=== PATIENT | male | born 1995 | race Two or more races ===

== ENCOUNTER 2018-09-24 19:32 | Emergency (ER) | payer OTHER ==
[~2018-09-24] VITALS: Ht 172.7 cm; Wt 84.4 kg
--- NOTE | 2018-09-24 19:42 | PHYS DOC ---
Past History Additional Past Medical Histor: Adjustment disorder Past Medical History Unable to obtained due to altered mental status Past Surgical History Unable to obtained due to altered mental status Social History Unable to obtained due to altered mental status Adult General Chief Complaint Chief Complaint: ALTERED MENTAL STATUS HPI HPI 23 y/o male presents via EMS from [facility] with reports of altered mental status with concern for possible seizure like activity. Patient apparently had "fallen" from standing down 2 stairs just prior to arrival. Patient subsequently had seizure like activity which was witnessed by inmates. Patient did also sustain a laceration to upper lip. Seen and evaluated by facility medical staff at which time Narcan intranasally was provided. Narcan without improvement of symptoms and therefore EMS was called. EMS reports concern for continued seizure activity and therefore gave 5mg of Versed IM in route. NO known history of seizures per facility paperwork. HPI limited due to patient's altered mental status. Review of Systems Review of Systems Integument: Upper lip laceration Neurologic: Seizure like activity, altered mental status ROS limited due to altered mental status Physical Exam Physical Exam Constitutional: Well developed, well nourished, no acute distress, minimally responsive HENT: Normocephalic, bilateral external canals and TMs clear, oropharynx moist, dried blood noted to nares bilaterally, midline upper lip laceration (1.5cm)) Eyes: PERRL, conjunctiva normal Neck: Supple. C-collar in place Cardiovascular: Heart rate regular rhythm, no murmur [] Lungs & Thorax: Bilateral breath sounds clear to auscultation [] Abdomen: Soft, no tenderness, pelvis stable and nontender Skin: Warm, dry, upper lip mucosal laceration as above Extremities: No tenderness, no deformity, no edema. [] Neurologic: GCS 9 (eye 2, verbal 2, motor 5), speech with incomprehensible sounds and grunts EKG EKG @1938 Sinus tachycardia at 119bpm, NO ST elevation, QRS 90, QT/QTc 306/437ms, PVC x 1 noted Radiology/Procedures Radiology/Procedures PROCEDURE: CT HEAD, CERVICAL SPINE, MAXILLOFACIAL WO CONTRAST CT brain without contrast, CT facial bones without contrast, CT cervical spine without contrast HISTORY: Head contusion, facial injury, altered mental status, seizure CT brain CT scan of brain was done without contrast. There is no skull fracture. There is no intracranial hemorrhage or subdural hematoma. An acute CVA is not identified. There is no mass or shift of the midline. Ventricles are normal in size. There is extracranial soft tissue swelling of the forehead. IMPRESSION: 1. No intracranial hemorrhage or acute finding noted. End impression CT cervical spine Axial CT images were obtained to the cervical spine. Sagittal and coronal reconstructed images were reviewed. Upper aspect of the lungs are clear. Thyroid is homogeneous. There are degenerative changes in the cervical spine. There is no acute C-spine fracture. There is prominent spurring at C3-4 more on the left. IMPRESSION: 1. Degenerative spondylosis at C3-4. 2. No acute C-spine fracture. CT FACIAL BONES: Axial CT images were obtained to the facial bones. Parotid and submandibular glands are unremarkable. Sinuses are clear throughout. Mandible is intact. A facial or orbital fracture is not identified. There is soft tissue swelling extracranially on the forehead. Nasal bone appears intact. IMPRESSION: 1. No facial fracture noted. PROCEDURE: PORTABLE CHEST 1V AP chest. HISTORY: Loss of consciousness, head contusion, altered mental status AP view was taken of the chest. Patient's taken a poor inspiration. The stomach is distended. Heart is within normal limits in size. There are no confluent infiltrates. There is no pneumothorax or pleural effusion. IMPRESSION: 1. Gastric distention. 2. Poor inspiration. 3. No acute infiltrates. Electronically signed by: Eric Duran MD (09/24/2018 9:00 PM) [facility] Course & Med Decision Making Course & Med Decision Making Pertinent Labs and Imaging studies reviewed. (See chart for details) Patient presents s/p seizure like activity which was seen at correctional facility. Midline upper lip laceration noted. GCS 9. Patient protecting own airway. CT head/cervical spine/maxillofacial obtained without acute process. Labs obtained and posted to chart. Lactic acid and CPK elevated likely due to true generalized seizure. Creat also slightly elevated. No prior labs for comparison. IVF boluses x 2 given. EKG stable. Patient with increased mentation during ED stay. Patient's confusion/altered mental status likely post -ictal in nature. Patient did reports history of prior seizures once he was more cognizant, however, denies ever being on medication. C-collar cleared. Upper lip laceration repaired. Keppra IV bolus provided. Patient stable for discharge back to correctional facility with outpatient follow-up with PCP/neurologist. Neurology referral provided. Rx for continued Keppra provided. Discussed findings and plan with patient and guards, who acknowledge understanding and agreement. Tory Disclaimer Tory Disclaimer This electronic medical record was generated, in whole or in part, using a voice recognition dictation system. Laceration/Wound Repair Laceration/Wound Repair : Wound Location: mouth (midline upper lip on mucosal surface) Wound Length (cm): 2 Wound Explored: contaminated (no foreign body) Irrigated w/ Saline (ccs): 50 Anesthesia: Lidocaine w/ Epi (2%) Volume Anesthetic (ccs): 1 Wound Debrided: minimal Wound Repaired With: sutures (Vicryl- simple buried interrupte) Suture Size/Type: 6:0 Number of Sutures: 2 Progress Time out performed. Tolerated procedure well and without difficulty. Departure Departure: Impression: Primary Impression: Seizure Additional Impression: Lip laceration Disposition: HOME, SELF-CARE (back to [facility]) Condition: STABLE Referrals: NEFTALY BELLA MD Patient Instructions: Mouth Laceration, [id number], Seizure, Adult, Easy-to- Read Additional Instructions: Please follow up with a neurologist prior to prescription medication running out. You will need to get your family physician and/or neurologist to continue this anti-seizure medication. Scripts Levetiracetam (KEPPRA) 500 Mg Tablet 1 TAB PO BID for seizure for 20 Days, #40 TAB 0 Refills Prov: JEISON ARECHIGA DO 09/24/18 Problem Qualifiers Additional Impression: Lip laceration Encounter type: initial encounter Qualified Codes: S01.511A - Laceration without foreign body of lip, initial encounter JEISON ARECHIGA DO Sep 24, 2018 19:42
[2018-09-24] MEDS ORDERED: IV NORMAL SALINE 1,000ML 1,000 ML IV ONE ×2 (19:45→20:30)
[2018-09-24 19:52] LABS: BASO % 0 % (0-3); EOS % 1 % (0-3); HEMATOCRIT 40.7 % (39.0-53.0); HEMOGLOBIN 13.9 g/dL (13.0-17.5); LYMPH # 1.8 x10^3/uL (1.0-4.8); LYMPH % 38 % (24-48); MEAN CORPUSCULAR HEMOGLOBIN 31 pg (25-35); MEAN CORPUSCULAR HGB CONC 34 g/dL (31-37); MEAN CORPUSCULAR VOLUME 92 fL (79-100); MONO # 0.3 x10^3/uL (0.0-1.1); MONO % 5 % (0-9); NEUT # 2.7 x10^3uL (1.8-7.7); NEUT % 56 % (31-73); PLATELET COUNT 224 x10^3/uL (140-400); RED BLOOD COUNT 4.42 x10^6/uL (4.30-5.70); RED CELL DISTRIBUTION WIDTH 13.1 % (11.5-14.5); WHITE BLOOD COUNT 4.8 x10^3/uL (4.0-11.0)
[2018-09-24] MEDS ORDERED: LIDOCAINE 2%/EPI 1:100,000 20 ML VIAL. IJ ONE (20:00)
[2018-09-24] MEDS ORDERED: LIDOCAINE 2%/EPI 1:100,000 20 ML VIAL. ONE (20:03)
[2018-09-24 20:05] LABS: ALBUMIN 4.1 g/dL (3.4-5.0); ALBUMIN/GLOBULIN RATIO 1.2 (1.0-1.7); CALCIUM 8.9 mg/dL (8.5-10.1); CREATININE 1.4 mg/dL (0.7-1.3); GFR 62.3; MAGNESIUM 2.1 mg/dL (1.8-2.4); POTASSIUM 3.9 mmol/L (3.5-5.1); TOTAL BILIRUBIN 0.2 mg/dL (0.2-1.0); TOTAL PROTEIN 7.4 g/dL (6.4-8.2)
[2018-09-24 20:18] LABS: SALIC 0.6 mg/dL (2.8-20.0)
[2018-09-24 20:19] LABS: BARBITURATES NEG (NEG); BENZODIAZEPINES POS (NEG); CANNABINOIDS NEG (NEG); COCAINE NEG (NEG); METHADONE NEG (NEG); OPIATES NEG (NEG); PHENCYCLIDINE NEG (NEG)
[2018-09-24 20:19] LABS: ACETAMIN < 2.0 mcg/mL (10-30)
[2018-09-24 20:20] LABS: AMPHETAMINE/METHAMPHETAMINE NEG (NEG)
[2018-09-24 20:25] LABS: BILIRUBIN,URINE NEG (NEG); CLARITY,URINE HAZY; COLOR,URINE YELLOW; GLUCOSE,URINE NEG (NEG); NITRITE,URINE NEG (NEG); UROBILINOGEN,URINE 0.2 mg/dL (0.2 mg/dL)
[2018-09-24 20:26] LABS: BACTERIA,URINE FEW /HPF (0-FEW); HYALINE CASTS, URINE MOD /HPF; SQUAMOUS EPITHELIAL CELL,UR OCC /LPF
--- NOTE | 2018-09-24 20:47 | RAD ---
CT brain without contrast, CT facial bones without contrast, CT cervical spine without contrast HISTORY: Head contusion, facial injury, altered mental status, seizure CT brain CT scan of brain was done without contrast. There is no skull fracture. There is no intracranial hemorrhage or subdural hematoma. An acute CVA is not identified. There is no mass or shift of the midline. Ventricles are normal in size. There is extracranial soft tissue swelling of the forehead. IMPRESSION: 1. No intracranial hemorrhage or acute finding noted. End impression CT cervical spine Axial CT images were obtained to the cervical spine. Sagittal and coronal reconstructed images were reviewed. Upper aspect of the lungs are clear. Thyroid is homogeneous. There are degenerative changes in the cervical spine. There is no acute C-spine fracture. There is prominent spurring at C3-4 more on the left. IMPRESSION: 1. Degenerative spondylosis at C3-4. 2. No acute C-spine fracture. CT FACIAL BONES: Axial CT images were obtained to the facial bones. Parotid and submandibular glands are unremarkable. Sinuses are clear throughout. Mandible is intact. A facial or orbital fracture is not identified. There is soft tissue swelling extracranially on the forehead. Nasal bone appears intact. IMPRESSION: 1. No facial fracture noted. PQRS Compliance Statement: One or more of the following individualized dose reduction techniques were utilized for this examination: 1. Automated exposure control 2. Adjustment of the mA and/or kV according to patient size 3. Use of iterative reconstruction technique Electronically signed by: Eric Duran MD (09/24/2018 8:42 PM) [facility]
--- NOTE | 2018-09-24 21:04 | RAD ---
AP chest. HISTORY: Loss of consciousness, head contusion, altered mental status AP view was taken of the chest. Patient's taken a poor inspiration. The stomach is distended. Heart is within normal limits in size. There are no confluent infiltrates. There is no pneumothorax or pleural effusion. IMPRESSION: 1. Gastric distention. 2. Poor inspiration. 3. No acute infiltrates. Electronically signed by: Eric Duran MD (09/24/2018 9:00 PM) [facility]
[2018-09-24 21:31] VITALS: BP 115/56
[2018-09-24] MEDS ORDERED: LEVE500T56 PO ×2 (22:00→22:01)
--- NOTE | 2018-09-24 23:56 | EKG ---
[address] [address] Test Date: 2018-09-24 Test Time: 19:38:12 Pat Name: YU MORALES Department: Room: Gender: M [employer]: : 1995 Requested By: JEISON ARECHIGA Order Number: [id number] Reading MD: Lavell Franco MD Measurements Intervals [place] Rate: 119 P: 48 HI: 148 QRS: 47 QRSD: 90 T: 15 QT: 306 QTc: 437 Interpretive Statements SINUS TACHYCARDIA PROBABLE PRECORDIAL LEAD MISPLACEMENT BASELINE ARTIFACT Electronically Signed On 10-01-2018 8:58:32 [employer] by Lavell Franco MD
== END 2018-09-24 23:05 | disposition home or self-care (01) ==
LOC: ER 19:32 → EEVIPCON 19:32 → ER 23:05
DX: S01.511A Laceration without foreign body of lip, initial encounter (principal); R41.82 Altered mental status, unspecified; R56.9 Unspecified convulsions; K31.89 Other diseases of stomach and duodenum; W10.8XXA Fall (on) (from) other stairs and steps, initial encounter; Y93.89 Activity, other specified; Y92.89 Other specified places as the place of occurrence of the external cause; Y99.8 Other external cause status
CPT/HCPCS: 12011; 36415; 51702; 70450; 70486; 71045; 72125; 80053; 80307; 81001; 82550; 83605; 83735; 85025; 87086; 93005; 96361; 96365; 99284; G0480; G6039; J1953; 80329; 82003; J7030